=== PATIENT | male | born 1975 | race Caucasian/White ===

== ENCOUNTER 2017-03-19 09:34 | Emergency (ER) | payer MEDICAID, MEDICARE ==
[~2017-03-19] VITALS: Ht 180.3 cm; Wt 90.7 kg
[2017-03-19] MEDS ORDERED: ASPIRIN 81 MG CHEW TABLET PO ONE (10:00)
[2017-03-19 10:14] LABS: BASO % 0.5 % (0.0-1.0); EOS # 0.4 K/mm3 (0.0-0.50); EOS % 5.3 % (0.0-3.0); LARGE UNSTAINED CELL # 0.1 K/mm3 (0.0-0.4); LARGE UNSTAINED CELL % 1.3 % (0.0-4.0); LYMPH # 2.3 K/mm3 (1.5-4.5); LYMPH % 30.6 % (24.0-44.0); MEAN CORPUSCULAR HEMOGLOBIN 30.6 pg (27.0-33.0); MEAN CORPUSCULAR HGB CONC 35.3 g/dl (32.0-36.5); MEAN CORPUSCULAR VOLUME 86.5 fl (80.0-96.0); MONO # 0.6 K/mm3 (0.0-0.8); MONO % 7.5 % (0.0-5.0); NEUTROPHILS % 54.7 % (36.0-66.0); PLATELET COUNT, AUTOMATED 257 k/mm3 (150-450); RED CELL DISTRIBUTION WIDTH 12.9 % (11.5-14.5); WHITE BLOOD COUNT 7.3 K/mm3 (4.0-10.0)
--- NOTE | 2017-03-19 10:21 | REP ---
Clinical: Chest pain . Comparison: None . Findings: The mediastinum and cardiac silhouette are stable and within normal limits for portable technique. The lung gilman are clear without acute consolidation, effusion, or pneumothorax. Skeletal structures are intact. Impression: Normal portable chest x-ray Signed by Ramos Au MD 03/19/2017 10:13 A
--- NOTE | 2017-03-19 10:23 | ECGEPIP ---
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
[2017-03-19 10:37] LABS: ANION GAP 9 MEQ/L (8-16); BLOOD UREA NITROGEN 12 MG/DL (7-18); CALCIUM LEVEL 8.7 MG/DL (8.5-10.1); CARBON DIOXIDE LEVEL 25 MEQ/L (21-32); CHLORIDE LEVEL 106 MEQ/L (98-107); CREATININE FOR GFR 0.95 MG/DL (0.70-1.30); GLOMERULAR FILTRATION RATE > 60.0 (>60); GLUCOSE, FASTING 110 MG/DL (70-105); POTASSIUM SERUM 4.2 MEQ/L (3.5-5.1); SODIUM LEVEL 140 MEQ/L (136-145)
[2017-03-19] MEDS ORDERED: ISOVUE-370 76% 100ML VIAL (Q9967) As Ordered ONE (10:53)
--- NOTE | 2017-03-19 11:23 | REP ---
CT pulmonary angiogram: With IV contrast. History: Shortness of breath. Comparison studies: Comparison is made with portable chest x-ray from earlier on this date. Contrast dose: 75 cc's of Isovue [address] technique: Helical scanning is acquired and overlapping 1.5 mm and contiguous 3 mm axial images are reformatted. In addition, a 3-D work station is deployed to generate thick slab maximum intensity projection images in sagittal and coronal imaging projections. CT pulmonary angiographic findings: There is good opacification of the pulmonary arterial tree. There is no CT evidence of pulmonary embolism. The thoracic aorta enhances homogeneously and is normal in caliber and course. There is no evidence of pleural or pericardial effusion. No hilar or mediastinal mass or adenopathy is observed. Mild bilateral gynecomastia is noted incidentally. No adrenal lesion is seen. The visualized upper abdominal structures are unremarkable. Maximal intensity projection images show no evidence of vessel cutoff or filling defect to suggest a pulmonary arterial thrombus. No infiltrate, significant nodule or mass is seen in the lung gilman. No significant bony abnormality is seen. Impression: No CT evidence of pulmonary embolism. Unremarkable CT pulmonary angiogram. Signed by Scottie Bai MD 03/19/2017 11:14 A
[2017-03-19 13:01] VITALS: BP 124/66
--- NOTE | 2017-03-20 08:00 | ECGEPIP ---
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
== END 2017-03-19 13:02 | disposition home or self-care (01) ==
LOC: M ED 10:19
DX: R07.9 Chest pain, unspecified (principal); M51.26 Other intervertebral disc displacement, lumbar region; F17.200 Nicotine dependence, unspecified, uncomplicated
CPT/HCPCS: 36415; 71010; 71275; 80048; 82550; 82553; 83880; 84484; 85025; 93005; 93041; 94760; 99285; Q9967

== ENCOUNTER → 2017-03-28 | Outpatient (REF) | payer MEDICARE | LOC: M LAB REF 16:08 | PROVIDERS: ATTEND Family Medicine Addiction Medicine | DX: Z00.01 Encounter for general adult medical examination with abnormal findings (principal); E78.00 Pure hypercholesterolemia, unspecified ==

== ENCOUNTER → 2017-08-13 | Outpatient (CLI) | payer MEDICARE, MEDICAID ==
--- NOTE | 2017-08-13 09:06 | REP ---
CT IACs WITHOUT CONTRAST: HISTORY: Right cholesteatoma. The right internal auditory canal, cochlea, and vestibule and semicircular canals are normal in appearance. There is complete opacification of the right middle ear cavity. Soft tissue density surrounds the ossicles. The ossicles are normal in configuration and position. There is blunting of the scutum. The tegmen is intact. There is retraction of the right tympanic membrane. There is complete opacification of the right mastoid air cells. The left internal auditory canal, cochlea, vestibule and semicircular canals are normal in appearance. The ossicles are normal in configuration and position. The scutum and tegmen are intact. The middle ear cavity and mastoid air cells are clear. Mucosal thickening is present in the maxillary sinuses. The nasopharynx is normal in appearance. IMPRESSION: There is complete opacification of the right middle ear cavity and mastoid air cells. This is associated with retraction of the right tympanic membrane and blunting of the scutum. These findings are suspicious for cholesteatoma. Signed by Art Siani MD 08/13/2017 09:19 A
== END ==
LOC: M RAD 07:43
PROVIDERS: ATTEND Specialist
DX: H71.01 Cholesteatoma of attic, right ear (principal)

== ENCOUNTER 2017-10-17 09:32 | Day surgery (SDC) | payer MEDICARE, MEDICAID ==
[~2017-10-17] VITALS: Ht 180.3 cm; Wt 94.1 kg
[2017-10-17] MEDS ORDERED: LR 1,000 ML IV ONE (09:45)
[2017-10-17] MEDS ORDERED: CIPRODEX OTIC SUSP 7.5ML As Ordered ONE (12:53)
[2017-10-17] MEDS ORDERED: MIDAZOLAM INJ 2 MG/2 ML VIAL (J2250) As Ordered ONE (12:58)
[2017-10-17] MEDS ORDERED: fentaNYL 100 MCG/2 ML INJECTION (J3010) As Ordered ONE (12:59)
[2017-10-17] MEDS ORDERED: PROPOFOL 200 MG/20 ML VIAL As Ordered ONE (13:22)
[2017-10-17] MEDS ORDERED: LIDOCAINE 2% INJ 100 MG/5 ML SDV (FOR ANES.) As Ordered ONE (13:22)
--- NOTE | 2017-10-17 13:31 | ROOPDOC ---
[facility] Report Of Operation Report of Operation DATE OF PROCEDURE: 10/17/17 PREPROCEDURE DIAGNOSES: [Right chronic serous otitis media with retraction pocket in a patient with previous presumed cholesteatoma surgery on the right ear.]. POSTPROCEDURE DIAGNOSES: [Same. No evidence of cholesteatoma.]. PROCEDURE: [Right myringotomy and tube placement with Paparella #1 ventilation tube.]. SURGEON: [Flaco Jaffe], FLUMER: [None], MD ANESTHESIA: [Gen. via mask]. ESTIMATED BLOOD LOSS: Approximately [0] mL. COMPLICATIONS: [None]. REMARKS: [Serous fluid present in the middle ear space.]. PROCEDURE NOTE: [Patient was mass to sleep by the service station helper. There was a piece of skin that was pushed down blocking view of the ear canal. This was cleaned out under binocular microscopy. Next, a curvilinear anterior inferior incision was made. Serous fluid was suctioned from the middle ear space. A Paparella #1 ventilation tube was placed without difficulty. Ciprodex drops were placed as well. There were no complications. Patient tolerated the procedure well. Cotton ball was placed in the mary carmen bowl. DESCRIPTION OF PROCEDURE: [Right myringotomy and tube placement.]. FLACO JAFFE MD Oct 17, 2017 13:31
[2017-10-17 14:20] VITALS: BP 121/80
== END 2017-10-17 14:30 | disposition home or self-care (01) ==
LOC: M SDC 09:32
PROVIDERS: ATTEND Otolaryngology
DX: H65.21 Chronic serous otitis media, right ear (principal); E78.00 Pure hypercholesterolemia, unspecified; M51.26 Other intervertebral disc displacement, lumbar region; N40.0 Benign prostatic hyperplasia without lower urinary tract symptoms; G47.9 Sleep disorder, unspecified; Z77.22 Contact with and (suspected) exposure to environmental tobacco smoke (acute) (chronic)
CPT/HCPCS: 69436; J2250; J3010

== ENCOUNTER 2018-03-09 18:58 | Emergency (ER) | payer MEDICARE, MEDICAID ==
[2018-03-09] MEDS: methylPREDNISolone INJ 125 MG/2 ML VIAL (J2930) IM (21:28)
[2018-03-09] MEDS: diazePAM 5 MG TAB PO (21:28)
[2018-03-09] MEDS: KETOROLAC 60 MG/2 ML VIAL (J1885) IM (21:28)
== END 2018-03-09 22:14 | disposition home or self-care (01) ==
LOC: M ED 18:58
DX: M54.17 Radiculopathy, lumbosacral region (principal); M51.9 Unspecified thoracic, thoracolumbar and lumbosacral intervertebral disc disorder
CPT/HCPCS: J1885

== ENCOUNTER → 2018-05-01 | Outpatient (CLI) | payer MEDICARE, MEDICAID | LOC: M PAIN 13:30 | DX: M54.5 Low back pain (principal); G89.29 Other chronic pain; M53.3 Sacrococcygeal disorders, not elsewhere classified; F17.220 Nicotine dependence, chewing tobacco, uncomplicated | CPT/HCPCS: G0463 ==

== ENCOUNTER → 2018-05-07 | Outpatient (CLI) | payer MEDICARE, MEDICAID ==
[~2018-05-07] MED LIST: BUPIVACAINE HCL 0.25% 30 ML VIAL As Ordered; ISOVUE-M 300 61% 15ML VIAL (Q9967) As Ordered; LIDOCAINE 1% SDV INJ 30 ML VIAL As Ordered; TRIAMCINOLONE ACETONIDE SUSP 40 MG/ML VIAL (J3301) As Ordered
== END ==
LOC: M PAIN 08:45
DX: G89.29 Other chronic pain (principal); M46.1 Sacroiliitis, not elsewhere classified; M53.88 Other specified dorsopathies, sacral and sacrococcygeal region; F17.220 Nicotine dependence, chewing tobacco, uncomplicated; Z87.820 Personal history of traumatic brain injury; Z86.69 Personal history of other diseases of the nervous system and sense organs; Z86.61 Personal history of infections of the central nervous system
CPT/HCPCS: J3301

== ENCOUNTER → 2018-05-13 | Outpatient (REF) | payer MEDICARE, MEDICAID ==
[2018-05-13 19:06] LABS: ALBUMIN 4.1 GM/DL (3.2-5.2); ALBUMIN/GLOBULIN RATIO 1.24 (1.00-1.93); ALKALINE PHOSPHATASE 96 U/L (45-117); ALT/SGPT 58 U/L (12-78); ANION GAP 9 MEQ/L (8-16); AST/SGOT 16 U/L (7-37); BILIRUBIN,TOTAL 0.4 MG/DL (0.2-1.0); BLOOD UREA NITROGEN 15 MG/DL (7-18); CALCIUM LEVEL 9.3 MG/DL (8.5-10.1); CARBON DIOXIDE LEVEL 27 MEQ/L (21-32); CHLORIDE LEVEL 104 MEQ/L (98-107); CHOLESTEROL LEVEL 200 MG/DL (<200); CREATININE FOR GFR 0.85 MG/DL (0.70-1.30); GLOMERULAR FILTRATION RATE > 60.0 (>60); GLUCOSE, FASTING 99 MG/DL (70-100); HDL CHOLESTEROL 50 MG/DL (>40); LDL CHOLESTEROL 121.2 MG/DL (<100); NON-HDL-C 150 MG/DL; POTASSIUM SERUM 4.6 MEQ/L (3.5-5.1); SODIUM LEVEL 140 MEQ/L (136-145); TOTAL PROTEIN 7.4 GM/DL (6.4-8.2); TRIGLYCERIDES LEVEL 144 MG/DL (<150)
== END ==
LOC: M LAB REF 17:50
DX: E78.2 Mixed hyperlipidemia (principal)
CPT/HCPCS: 84443

== ENCOUNTER → 2018-05-28 | Outpatient (CLI) | payer MEDICARE, MEDICAID | LOC: M RAD 14:05 | DX: R42 Dizziness and giddiness (principal); I65.22 Occlusion and stenosis of left carotid artery | CPT/HCPCS: 93880 ==

== ENCOUNTER → 2018-06-02 | Outpatient (CLI) | payer MEDICARE, MEDICAID | LOC: M PAIN 13:30 | DX: M79.1 Myalgia (principal); M46.1 Sacroiliitis, not elsewhere classified; M54.5 Low back pain; G89.29 Other chronic pain; M53.3 Sacrococcygeal disorders, not elsewhere classified; F17.290 Nicotine dependence, other tobacco product, uncomplicated; Z87.820 Personal history of traumatic brain injury; Z86.69 Personal history of other diseases of the nervous system and sense organs; Z86.61 Personal history of infections of the central nervous system | CPT/HCPCS: G0463 ==

== ENCOUNTER → 2018-06-17 | Outpatient (CLI) | payer MEDICARE, MEDICAID | LOC: M PAIN 11:45 | DX: Z53.29 Procedure and treatment not carried out because of patient's decision for other reasons (principal) ==

== ENCOUNTER 2018-09-18 10:24 | Day surgery (SDC) | payer MEDICARE, MEDICAID ==
[2018-09-18] MEDS: LR 1,000 ML IV (11:00)
[2018-09-18] MEDS ORDERED: EPINEPHrine INJ 1 MG/ML 1ML AMP As Ordered (12:23)
[2018-09-18] MEDS ORDERED: ROCURONIUM BROMIDE 50 MG/5 ML VIAL As Ordered (12:55)
[2018-09-18] MEDS ORDERED: MIDAZOLAM INJ 2 MG/2 ML VIAL (J2250) As Ordered (12:55)
[2018-09-18] MEDS ORDERED: PROPOFOL 200 MG/20 ML VIAL As Ordered (12:55)
[2018-09-18] MEDS ORDERED: dexameTHASONE 4 MG/ML 1ML VIAL (J1100) As Ordered (12:55)
[2018-09-18] MEDS ORDERED: fentaNYL 100 MCG/2 ML INJECTION (J3010) As Ordered ×2 (12:55→14:05)
[2018-09-18] MEDS ORDERED: LIDOCAINE 2% INJ 100 MG/5 ML SDV (FOR ANES.) As Ordered (12:55)
[2018-09-18] MEDS: METHYLENE BLUE 0.5% (5MG/ML) 10 ML AMP (PROVAYBLUE)(Q9968 PER 1MG) As Ordered (13:07)
[2018-09-18] MEDS: LIDOCAINE W/EPINEPHRINE 1% 20ML VIAL As Ordered (13:07)
[2018-09-18] MEDS: OXYMETAZOLINE NASAL SPRAY (AFRIN) As Ordered (13:07)
[2018-09-18] MEDS: CIPRODEX OTIC SUSP 7.5ML As Ordered (13:30)
[2018-09-18] MEDS ORDERED: GLYCOPYRROLATE INJ 0.2 MG/ML 2 ML VIAL As Ordered (13:38)
[2018-09-18] MEDS ORDERED: ONDANSETRON 4MG/2ML VIAL (J2405) As Ordered (13:38)
[2018-09-18] MEDS ORDERED: NEOSTIGMINE 10 MG/10 ML VIAL (J2710) As Ordered (13:38)
[2018-09-18] MEDS: fentaNYL 100 MCG/2 ML INJECTION (J3010) IV ×2 (14:06→14:11)
[2018-09-18] MEDS ORDERED: PERCOCET 5MG/325MG TAB PO (14:15)
[2018-09-18] MEDS ORDERED: ACETAMINOPH W/CODEINE #3 TAB UD PO (14:15)
[2018-09-18] MEDS ORDERED: LR 1,000 ML IV (14:15)
[2018-09-18] MEDS ORDERED: ONDANSETRON 4MG/2ML VIAL (J2405) IV (14:15)
[2018-09-18] MEDS ORDERED: HYDROMORPHONE HCL 0.5 MG/ 0.5 ML SYRINGE (J1170 PER 1) IV (14:15)
== END 2018-09-18 15:50 | disposition home or self-care (01) ==
LOC: M SDC 15:50
DX: H66.93 Otitis media, unspecified, bilateral (principal); H65.21 Chronic serous otitis media, right ear; M54.9 Dorsalgia, unspecified; Z72.0 Tobacco use
CPT/HCPCS: 69436